=== PATIENT | male | born 1950 | race Caucasian/White ===

== ENCOUNTER 2018-01-01 16:16 | Emergency (ER) | payer MEDICARE, BC ==
[2018-01-01] MEDS ORDERED: ALBUTEROL/IPRATROPIUM 1 VIAL SOL INH ONE (16:23)
[2018-01-01 16:29] VITALS: RESP 20
[2018-01-01] MEDS ORDERED: ALBUTEROL/IPRATROPIUM 1 VIAL SOL ONE (16:31)
[2018-01-01] MEDS ORDERED: MORPHINE SULFATE 10 MG/ML SOL IV ONE (16:40)
[2018-01-01] MEDS ORDERED: ONDANSETRON HCL 4 MG/2 ML SOL IV ONE ×2 (16:40→17:56)
[2018-01-01] MEDS ORDERED: SODIUM CHLORIDE 0.9% 500 ML SOL IV SCH (16:45)
[2018-01-01] MEDS: SODIUM CHLORIDE 0.9% FLUSH 10 ML SOL IV PRN ×3 (16:48→18:10)
[2018-01-01 16:57] LABS: BASOPHILS % (AUTO) 2 % (0-3); EOSINOPHILS % (AUTO) 0 % (0-9); HEMATOCRIT 44 % (39-53); HEMOGLOBIN 14.2 gm/dl (13.5-17.7); MEAN CORPUSCULAR HEMOGLOBIN 27.8 pg (27.0-32.0); MEAN CORPUSCULAR HGB CONC 32.5 gm/dl (32.0-36.0); MEAN CORPUSCULAR VOLUME 85 fL (80-100); MONOCYTES % (AUTO) 11.3 % (0-12); NEUTROPHILS % (AUTO) 72.7 % (37-80)
[2018-01-01] MEDS ORDERED: ONDANSETRON HCL 4 MG/2 ML SOL ONE ×2 (17:00→17:58)
[2018-01-01] MEDS ORDERED: MORPHINE SULFATE 10 MG/ML SOL ONE (17:00)
[2018-01-01 17:04] LABS: LACTIC ACID 1.1 mMol/L (0.0-2.0)
[2018-01-01 17:15] LABS: ALBUMIN 2.8 gm/dl (3.4-5.0); ALKALINE PHOSPHATASE 42 IU/L (46-116); ALT 96 IU/L (14-63); AST 60 IU/L (15-37); BILIRUBIN,TOTAL 1.4 mg/dl (0.2-1.0); BLOOD UREA NITROGEN 15 mg/dl (7-18); CALCIUM 8.6 mg/dl (8.5-10.1); CARBON DIOXIDE 28.2 mEq/L (21-32); CHLORIDE 97 mMol/L (98-107); CREATININE 0.94 mg/dl (0.80-1.30); GLOM FILT RATE 80 mL/min (>60); GLUCOSE 102 mg/dl (74-106); POTASSIUM 4.2 mMol/L (3.5-5.1); SODIUM 135 mMol/L (136-145); TOTAL PROTEIN 6.4 gm/dl (6.4-8.2); TROP I < 0.017 ng/ml (0.000-0.056)
[2018-01-01 17:53] VITALS: TEMP 99.2
[2018-01-01] MEDS ORDERED: HYDROMORPHONE HCL 2 MG/ML SOL IV ONE (17:55)
[2018-01-01] MEDS ORDERED: SOLUMEDROL 125 MG/2 ML 125 MG/2 ML PDS IV ONE (17:56)
[2018-01-01] MEDS ORDERED: HYDROMORPHONE HCL 2 MG/ML SOL ONE (17:58)
[2018-01-01] MEDS ORDERED: SOLUMEDROL 125 MG/2 ML 125 MG/2 ML PDS ONE (17:58)
[2018-01-01 19:01] LABS: APPEARANCE,URINE Clear; BILIRUBIN,URINE NEGATIVE (NEGATIVE); COLOR,URINE Yellow; GLUCOSE, URINE (UA) NEGATIVE (NEGATIVE); KETONES,URINE 2+ (NEGATIVE); LEUKOCYTE ESTERASE ,URINE NEGATIVE (NEGATIVE); NITRATE,URINE NEGATIVE (NEGATIVE); OCCULT BLOOD,URINE 1+ (NEG-TRACE); UROBILINOGEN,URINE 0.2 (0.2-1.0 EU)
[2018-01-01 19:09] LABS: CRYSTALS NEGATIVE (0-3 AVE/HPF); RBC,URINE 0-2 (0-3AV/HPF); WBC,URINE 0-2 (0-5AV/HPF)
[2018-01-01 19:10] LABS: BACTERIA 1+ (< 1+)
[2018-01-01] MEDS ORDERED: AZITHROMYCIN 250 MG TAB PO ONE (19:41)
[2018-01-01] MEDS ORDERED: LEVOFLOXACIN 500 MG TAB PO ONE (19:42)
[2018-01-01] MEDS ORDERED: ALBUTEROL HFA 60 PUFF/INHALER INH ONE (19:43)
[2018-01-01] MEDS ORDERED: LEVOFLOXACIN 500 MG TAB ONE (19:46)
[2018-01-01] MEDS ORDERED: AZITHROMYCIN 250 MG TAB ONE (19:46)
[2018-01-01 20:27] VITALS: BP 136/90; PULSE 99; O2SAT 97
== END 2018-01-01 20:18 | disposition home or self-care (01) | DRG 192 ==
LOC: ED 16:16
DX: J44.1 Chronic obstructive pulmonary disease with (acute) exacerbation (principal); K59.00 Constipation, unspecified; R10.9 Unspecified abdominal pain; R91.8 Other nonspecific abnormal finding of lung field
CPT/HCPCS: 36415; 71045; 74177; 80053; 81001; 83880; 84484; 85025; 93005; 99285; J1170; J2270; J2405; J2930; Q9967; A9270-GY

== ENCOUNTER 2018-07-18 15:26 | Emergency (ER) | payer MEDICARE, BC ==
[2018-07-18 15:36] VITALS: TEMP 97.7
[2018-07-18] MEDS ORDERED: ALBUTEROL/IPRATROPIUM 1 VIAL SOL INH ONE ×2 (15:41→17:50)
[2018-07-18] MEDS ORDERED: ALBUTEROL/IPRATROPIUM 1 VIAL SOL ONE ×2 (15:42→17:53)
[2018-07-18 15:58] LABS: ABG PH 7.36 (7.35-7.45)
[2018-07-18 16:14] LABS: ALBUMIN 3.6 gm/dl (3.4-5.0); BILIRUBIN,TOTAL 0.9 mg/dl (0.2-1.0); CALCIUM 9.3 mg/dl (8.5-10.1); CARBON DIOXIDE 30.3 mEq/L (21-32); CREATININE 0.81 mg/dl (0.80-1.30); POTASSIUM 4.2 mMol/L (3.5-5.1); TOTAL PROTEIN 7.7 gm/dl (6.4-8.2)
[2018-07-18 16:21] LABS: HEMOGLOBIN 14.5 gm/dl (13.5-17.7)
[2018-07-18 16:22] LABS: BASOPHILS % (AUTO) 1 % (0-3); EOSINOPHILS % (AUTO) 1 % (0-9); HEMATOCRIT 46 % (39-53); LYMPHOCYTES % (AUTO) 12.1 % (10-50); MEAN CORPUSCULAR HGB CONC 31.4 gm/dl (32.0-36.0); MEAN CORPUSCULAR VOLUME 86 fL (80-100); MONOCYTES % (AUTO) 8.4 % (0-12); NEUTROPHILS % (AUTO) 78.2 % (37-80)
[2018-07-18 19:34] VITALS: BP 155/91; PULSE 108; RESP 20; O2SAT 95
== END 2018-07-18 18:45 | disposition home or self-care (01) | DRG 191 ==
LOC: ED 15:26
DX: J44.1 Chronic obstructive pulmonary disease with (acute) exacerbation (principal); K62.5 Hemorrhage of anus and rectum; Z87.891 Personal history of nicotine dependence
CPT/HCPCS: 36415; 36600; 71045; 74177; 80053; 82803; 83880; 85025; 99284; Q9967